=== PATIENT | male | born 2000 | race Caucasian/White ===

== ENCOUNTER 2021-12-15 17:18 | Emergency (ER) | payer OTHER ==
[2021-12-15] MEDS ORDERED: TETANUS/DIPHTHERIA/PERTUSSIS 0.5 ML SYRINGE IM ONE (19:12)
[2021-12-15] MEDS ORDERED: CLINDAMYCIN 150 MG CAPSULE PO STA (19:15)
--- NOTE | 2021-12-15 19:27 | ED Physician Documentation ---
History of Present Illness - Stated complaint Stated Complaint: L HAND DOG BITE - Chief complaint Chief Complaint: Laceration - History obtained from History obtained from: Patient - Additonal information Additional information: His own healthy fully immunized dogs were fighting each other and he broke up the fight and has 2 puncture wounds about the left hand and wrist. That is his nondominant side. No other injuries. Tetanus is unknown. Review of Systems Constitutional: reports: Reviewed and negative Cardiac: reports: Reviewed and negative Respiratory: reports: Reviewed and negative PD PAST MEDICAL HISTORY - Present Medications Home Medications: Ambulatory Orders Medication Instructions Recorded Confirmed clindamycin HCL [Cleocin HCl] 300 mg PO QID #28 cap 12/15/21 - Allergies Allergies/Adverse Reactions: Allergies Allergy/AdvReac Type Severity Reaction Status Date / Time amoxicillin Allergy Rash Verified 12/15/21 17:38 PD ED PE NORMAL - Vitals Vital signs reviewed: Yes - General General: Alert and oriented X 3, No acute distress - Back Back: No CVA TTP, No spinal TTP - Derm Derm: Normal color, Warm and dry - Extremities Extremities: Other (There is 1 puncture wound on the dorsum of the hand near the proximal fourth metacarpal and another over on the radial side near the proximal first metacarpal. He has excellent strength in extension of all digits and normal neurovascular function in each digit.) - Neuro Neuro: Alert and oriented X 3, Normal speech Results - Vitals Vitals: Vital Signs - 24 hr 12/15/21 17:33 Temperature 36.4 C L Heart Rate 50 L Respiratory 16 Rate Blood Pressure 121/73 O2 Saturation 99 Oxygen O2 Source Room air Procedures - Laceration (location) Left thumb Length in cm: 1 Wound type: Linear, Into muscle Tendon involvement: Tendon intact Anesthesia: Lidocaine 1% Wound preparation: Hibiclens, Irrigated copiously NS Skin layer closure: Nylon, Interrupted, Size #-0 - enter number (4-0), Sutures - enter # (1) Other: Patient tolerated well, No complications, Neurovascular intact, Tetanus booster given Left dorsal hand Length in cm: 1 Wound type: Linear, Into muscle Neurovascular status: Sensory intact, Motor intact, Vascular intact Tendon involvement: Tendon intact Anesthesia: Lidocaine 1% Wound preparation: Hibiclens, Irrigated copiously NS Skin layer closure: Nylon, Interrupted, Size #-0 - enter number (4-0), Sutures - enter # (1) Other: Patient tolerated well, No complications, Neurovascular intact, Tetanus booster given PD MEDICAL DECISION MAKING - ED course ED course: Note made that he is allergic to amoxicillin. We explored this. He says his reaction is pretty significant with hives. As such he is prescribed clindamycin after review of other treatment for capnocytophagia. Departure - Departure Disposition: 01 Home, Self Care Clinical Impression: Dog bite of left hand Qualifiers: Encounter type: initial encounter Qualified Code(s): S61.452A - Open bite of left hand, initial encounter; W54.0XXA - Bitten by dog, initial encounter Condition: Good Record reviewed to determine appropriate education?: Yes Instructions: ED Bite Dog Prescriptions: clindamycin HCL [Cleocin HCl] 300 mg PO QID #28 cap Comments: I sent your prescription electronically to [facility] in [place]. Come back for any signs of infection which would include: Redness, swelling, drainage, increased pain, or fevers. You can wash it soap and water. Keep it covered and moist with bacitracin ointment which is available over the counter; avoid neosporin. Follow-up with your physician in about 14 days for suture removal.
[2021-12-15 19:36] VITALS: BP 125/66
== END 2021-12-15 19:36 | disposition home or self-care (01) ==
LOC: ED 17:18
DX: S61.452A Open bite of left hand, initial encounter (principal); W54.0XXA Bitten by dog, initial encounter; Z23 Encounter for immunization; Z88.0 Allergy status to penicillin
CPT/HCPCS: 12001; 90471; 90715; 99283; A9270